=== PATIENT | female | born 1990 | race African-American/Black ===

== ENCOUNTER 2019-05-03 14:54 | Emergency (ER) | payer OTHER ==
[~2019-05-03] VITALS: Ht 167.6 cm; Wt 72.6 kg
--- NOTE | 2019-05-03 15:44 | NUR ---
ED Nurse Note: PT CALLED IN FROM WAITING ROOM. PT CAME IN DUE TO ABD PAIN STARTED THIS MORNING. DENIES N/V/D. PT IS CURRENTLY ON HER MENSTRUAL PERIOD.
[2019-05-03 15:45] VITALS: BP 109/74
--- NOTE | 2019-05-03 15:49 | NUR ---
ED Nurse Note: URINE SPECIMEN COLLECTED
[2019-05-03 16:50] VITALS: BP 110/64
[2019-05-03 16:54] LABS: APPEARANCE,URINE CLEAR; BILIRUBIN, URINE NEGATIVE (NEGATIVE); COLOR,URINE AMBER; GLUCOSE, URINE (UA) NEGATIVE (NEGATIVE); KETONES,URINE NEGATIVE (NEGATIVE); LEUKOCYTE ESTERASE ,URINE NEGATIVE (NEGATIVE); NITRITE,URINE NEGATIVE (NEGATIVE); PH,URINE 8 (4.5-8.0); PROTEIN,URINE NEGATIVE (NEGATIVE); UROBILINOGEN,URINE NORMAL MG/DL (0.0-1.0)
[2019-05-03] MEDS ORDERED: Lidocaine 2% Visc 15ml soln ORAL ONE (17:15)
[2019-05-03] MEDS ORDERED: Mylanta II UD 30ml ORAL ONE (17:15)
--- NOTE | 2019-05-03 17:18 | Emergency Room Report ---
History of Present Illness General Chief Complaint: Abdominal Pain Source: Patient Present Illness HPI 28-year-old female presents to the emergency department complaining of 10 out of 10 severity epigastric pain and tenderness since this morning. Patient denies nausea, vomiting, fevers, chills, constipation or diarrhea. Patient reports difficulty sitting upright or laying down. She states she is currently on her menstrual cycle and initially thought that this was cramp related however she states that the location is very odd and is in the epigastric area only. She denies EtOH use, significant past medical history, denies caffeine use she does report on occasion she will eat spicy foods. She denies history of acid reflux or stomach ulcers. She denies recent NSAID use. No other aggravating or relieving factors at this time. Allergies: Coded Allergies: No Known Allergies (Unverified , 05/03/19) Patient History Past Medical History: see triage record Past Surgical History: none Pertinent Family History: none Last Menstrual Period: CURRENTLY ON HER PERIOD Now: No Reviewed Nursing Documentation: PMH: Agreed; PSxH: Agreed Nursing Documentation-PMH Past Medical History: No Stated History Review of Systems All Other Systems: negative except mentioned in HPI Physical Exam Vital Signs Date Time Temp Pulse Resp B/P (MAP) Pulse Ox O2 Delivery O2 Flow Rate FiO2 05/03/19 15:01 98.4 83 15 109/74 (86) 97 Room Air Sp02 EP Interpretation: reviewed, normal General Appearance: no apparent distress, alert, GCS 15, non-toxic Head: normocephalic, atraumatic Eyes: bilateral eye normal inspection, bilateral eye PERRL ENT: hearing grossly normal, normal voice Neck: full range of motion Respiratory: lungs clear, normal breath sounds, speaking full sentences Cardiovascular #1: regular rate, rhythm Gastrointestinal: normal bowel sounds, soft, tenderness - moderate epigastric TTP, guarding with TTP in the upper quadrants. Mild RLQ ttp. No rebound. Genitourinary: normal inspection, no CVA tenderness Musculoskeletal: normal range of motion, gait/station normal, non-tender Neurologic: alert, motor strength/tone normal, oriented x3, sensory intact, responsive, speech normal Psychiatric: judgement/insight normal Skin: no rash, normal color, normal inspection Medical Decision Making PA Attestation Dr. Allan is my supervising Physician whom patient management has been discussed with. Diagnostic Impression: Primary Impression: Abdominal pain Qualified Codes: R10.13 - Epigastric pain ER Course 28-year-old female presents to the emergency department complaining of 10 out of 10 severity epigastric pain and tenderness since this morning. Patient denies nausea, vomiting, fevers, chills, constipation or diarrhea. Patient reports difficulty sitting upright or laying down. She states she is currently on her menstrual cycle and initially thought that this was cramp related however she states that the location is very odd and is in the epigastric area only. She denies EtOH use, significant past medical history, denies caffeine use she does report on occasion she will eat spicy foods. She denies history of acid reflux or stomach ulcers. She denies recent NSAID use. No other aggravating or relieving factors at this time. Ddx considered but are not limited to Diverticulitis, acute appy, diarrhea,UC, PUD, GE, pancreatitis, gallstone, ovarian torsion, ectopic , PID tubo-ovarian abscess. Vital signs: are WNL, pt. is afebrile H&PE are most consistent with moderate tenderness upon palpation during physical exam. Will require laboratory work-up ORDERS: -CBC, CMP, LIPASE: WNL / unremarkable -UA: WNL -URINE HCG: Negative ED INTERVENTIONS: -PO GI Cocktail - Pepcid PO 20 mg Patient had full resolvent of her pain after GI cocktail. She continues to be in no acute distress, nontoxic in appearance and verbalizes that she feels much better now. DISCHARGE: At this time pt. is stable for d/c to home. Will provide printed patient care instructions, and any necessary prescriptions. Care plan and follow up instructions have been discussed with the patient prior to discharge. Labs Test 05/03/19 15:47 05/03/19 17:12 Urine Color Pebbles Urine Appearance Clear Urine pH 8 (4.5-8.0) Urine Specific [place] 1.010 (1.005-1.035) Urine Protein Negative (NEGATIVE) Urine Glucose (UA) Negative (NEGATIVE) Urine Ketones Negative (NEGATIVE) Urine Blood 5+ (NEGATIVE) Urine Nitrite Negative (NEGATIVE) Urine Bilirubin Negative (NEGATIVE) Urine Ictotest Negative (NEGATIVE) Urine Urobilinogen Normal MG/DL (0.0-1.0) Urine Leukocyte Esterase Negative (NEGATIVE) Urine RBC Tntc /HPF (0 - 2) Urine WBC 0-2 /HPF (0 - 2) Urine Squamous Epithelial Cells Few /LPF (NONE/OCC) Urine Bacteria Few /HPF (NONE) Urine HCG, Qualitative Negative (NEGATIVE) White Blood Count 2.9 K/UL (4.8-10.8) Red Blood Count 4.29 M/UL (4.20-5.40) Hemoglobin 11.9 G/DL (12.0-16.0) Hematocrit 36.0 % (37.0-47.0) Mean Corpuscular Volume 84 FL (80-99) Mean Corpuscular Hemoglobin 27.7 PG (27.0-31.0) Mean Corpuscular Hemoglobin Concent 33.0 G/DL (32.0-36.0) Red Cell Distribution Width 12.9 % (11.6-14.8) Platelet Count 198 K/UL (150-450) Mean Platelet Volume 9.7 FL (6.5-10.1) Neutrophils (%) (Auto) % (45.0-75.0) Lymphocytes (%) (Auto) % (20.0-45.0) Monocytes (%) (Auto) % (1.0-10.0) Eosinophils (%) (Auto) % (0.0-3.0) Basophils (%) (Auto) % (0.0-2.0) Sodium Level 139 MMOL/L (136-145) Potassium Level 4.7 MMOL/L (3.5-5.1) Chloride Level 104 MMOL/L (98-107) Carbon Dioxide Level 26 MMOL/L (21-32) Anion Gap 9 mmol/L (5-15) Blood Urea Nitrogen 8 mg/dL (7-18) Creatinine 0.6 MG/DL (0.55-1.30) Estimat Glomerular Filtration Rate > 60 mL/min (>60) Glucose Level 84 MG/DL (74-106) Calcium Level 9.4 MG/DL (8.5-10.1) Total Bilirubin 0.4 MG/DL (0.2-1.0) Aspartate Amino Transf (AST/SGOT) 29 U/L (15-37) Alanine Aminotransferase (ALT/SGPT) 13 U/L (12-78) Alkaline Phosphatase 59 U/L (46-116) Total Protein 7.5 G/DL (6.4-8.2) Albumin 3.7 G/DL (3.4-5.0) Globulin 3.8 g/dL Albumin/Globulin Ratio 1.0 (1.0-2.7) Amylase Level 45 U/L (25-115) Lipase 82 U/L (73-393) Last Vital Signs Date Time Temp Pulse Resp B/P (MAP) Pulse Ox O2 Delivery O2 Flow Rate FiO2 05/03/19 15:45 83 15 Room Air 05/03/19 15:45 98.4 109/74 97 Status: improved Disposition: HOME, SELF-CARE Condition: Stable Scripts No Active Prescriptions or Reported Meds Referrals: Kyle Ortez Comp. [facility] Patient Instructions: Abdominal Pain, Adult, Gastritis, Adult, Peptic Ulcer, [id number] Additional Instructions: Take medications as directed. Follow up with a Primary Care Provider in 3-5 days, even if your symptoms have resolved. --Please review list of primary care clinics, if you do not already have a primary care provider Return sooner to ED if new symptoms occur, or current symptoms become worse. - Please note that this Emergency Department Report was dictated using BBspaced[employer] supervisor technology software, occasionally this can lead to erroneous entry secondary to interpretation by the dictation equipment. Nikole Chao May 03, 2019 17:18
[2019-05-03 17:36] LABS: ANION GAP 9 mmol/L (5-15); BLOOD UREA NITROGEN 8 mg/dL (7-18); CALCIUM 9.4 MG/DL (8.5-10.1); CARBON DIOXIDE 26 MMOL/L (21-32); CHLORIDE 104 MMOL/L (98-107); CREATININE 0.6 MG/DL (0.55-1.30); POTASSIUM 4.7 MMOL/L (3.5-5.1); SODIUM 139 MMOL/L (136-145)
[2019-05-03 17:40] LABS: ALANINE AMINOTRANSFERASE 13 U/L (12-78); ALBUMIN 3.7 G/DL (3.4-5.0); ALKALINE PHOSPHATASE 59 U/L (46-116); AMYLASE 45 U/L (25-115); ASPARTATE AMINO TRANSFERASE 29 U/L (15-37); BILIRUBIN,TOTAL 0.4 MG/DL (0.2-1.0)
[2019-05-03 17:44] LABS: HEMOGLOBIN 11.9 G/DL (12.0-16.0); MEAN CORPUSCULAR VOLUME 84 FL (80-99); PLATELET COUNT 198 K/UL (150-450); RED BLOOD COUNT 4.29 M/UL (4.20-5.40); RED CELL DISTRIBUTION WIDTH 12.9 % (11.6-14.8); WHITE BLOOD COUNT 2.9 K/UL (4.8-10.8)
[2019-05-03 18:16] VITALS: BP 106/71
--- NOTE | 2019-05-03 18:17 | NUR ---
ER DISCHARGE NOTE: Patient is cleared to be discharged per ERMD, pt is aox4, on room air, with stable vital signs. pt was given dc and prescription instructions, pt was able to verbalize understanding, pt id band and iv site removed without complications. pt is able to ambulate with steady gait. pt took all belongings. pt accompanied by brother and father
[2019-05-03] MEDS ORDERED: LIDOCAINE VISC100 ML ORAL (18:28)
[2019-05-03] MEDS ORDERED: MYLANTA MAXIMU355 ML PO (18:28)
[2019-05-03] MEDS ORDERED: ZANTAC150 MG ORAL (18:28)
== END 2019-05-03 18:45 | disposition home or self-care (01) ==
LOC: EMR 18:44
DX: R10.13 Epigastric pain (principal)
CPT/HCPCS: 36415; 80053; 81003; 81025; 82150; 83690; 85007; 85025; 99283